=== PATIENT | male | born 1970 | race Caucasian/White ===

== ENCOUNTER 2018-11-27 17:35 | Emergency (ER) | payer BC, OTHER ==
[2018-11-27 17:40] VITALS: BP 124/91
[2018-11-27] MEDS ORDERED: Naproxen TAB* 250 MG PO ONE (19:18)
--- NOTE | 2018-11-27 19:25 | ED ---
Lower Extremity - HPI Summary HPI Summary: 48-year-old male presents with complaints of right knee pain that started today while at work. States he was walking and had a sudden onset of sharp pain to the medial aspect of the knee. Was not able to bear weight immediately after the onset of pain however has since been able to walk and bear weight with some discomfort. Reports mild swelling to the knee. Patient reports that he injured his left knee a couple weeks ago and has been favoring that knee and thinks he may have been putting extra stress on the right knee. No previous or past injury to the right knee. Denies bruising, erythema, numbness, or tingling. - History of Current Complaint Chief Complaint: EDExtremityLower Stated Complaint: TENDER KNEE, SHARP PAIN PER PT Time Seen by Provider: 11/27/18 19:06 Hx Obtained From: Patient Pain Intensity: 2 - Allergies/Home Medications Allergies/Adverse Reactions: Allergies Allergy/AdvReac Type Severity Reaction Status Date / Time No Known Allergies Allergy Verified 11/27/18 17:40 Home Medications: Home Medications Fluticasone NASAL SPRAY 50MCG* [Flonase NASAL SPRAY 50MCG*] 2 spray BOTH NARES DAILY 11/27/18 [History Confirmed 11/27/18] Sertraline* [Zoloft*] 100 mg PO DAILY 11/27/18 [History Confirmed 11/27/18] PMH/Surg Hx/FS Hx/Imm Hx Psychiatric History: Reports: Hx Depression - Immunization History Date of Tetanus Vaccine: unk Date of Influenza Vaccine: none Infectious Disease History: No Infectious Disease History: Denies: Traveled Outside the [place] in Last 30 Days - Family History Known Family History: Positive: Non-Contributory - Social History Occupation: Employed Full-time Lives: With Family Alcohol Use: Rare Substance Use Type: Reports: Marijuana Substance Use Comment - Amount & Last Used: daily Smoking Status (MU): Former Smoker Review of Systems Constitutional: Negative Cardiovascular: Negative Respiratory: Negative Gastrointestinal: Negative Genitourinary: Negative Musculoskeletal: Other - See HPI Negative: Bruising Negative: Paresthesia, Numbness All Other Systems Reviewed And Are Negative: Yes Physical Exam - Summary Physical Exam Summary: GENERAL APPEARANCE: Well developed, well nourished, alert and cooperative, and appears to be in no acute distress. CARDIAC: Normal S1 and S2. No S3, S4 or murmurs. Rhythm is regular. There is no peripheral edema, cyanosis or pallor. Extremities are warm and well perfused. Capillary refill is less than 2 seconds. Peripheral pulses intact. LUNGS: Clear to auscultation without rales, rhonchi, wheezing or diminished breath sounds. ABDOMEN: Positive bowel sounds. Soft, nondistended, nontender. No guarding or rebound. No masses or hepatosplenomegally. MUSKULOSKELETAL: Normal muscular development. Limping gait. EXTREMITIES: Mild tenderness and edema to the medial aspect of the right knee without any gross deformity, erythema, or ecchymosis. Full passive ROM. No laxity noted. Circulation and sensation were intact. SKIN: Skin normal color, texture and turgor. Triage Information Reviewed: Yes Vital Signs On Initial Exam: Initial Vitals Temp Pulse Resp BP Pulse Ox 99.2 F 87 16 124/91 97 11/27/18 17:38 11/27/18 17:38 11/27/18 17:38 11/27/18 17:38 11/27/18 17:38 Vital Signs Reviewed: Yes Diagnostics - Vital Signs Vital Signs Temp Pulse Resp BP Pulse Ox 11/27/18 17:38 99.2 F 87 16 124/91 97 - Laboratory Lab Statement: Any lab studies that have been ordered have been reviewed, and results considered in the medical decision making process. Lower Extremity Course/Dx - Course Course Of Treatment: 48-year-old male presents with complaints of right knee pain that started today while at work. States he was walking and had a sudden onset of sharp pain to the medial aspect of the knee. Was not able to bear weight immediately after the onset of pain however has since been able to walk and bear weight with some discomfort. Reports mild swelling to the knee. Patient reports that he injured his left knee a couple weeks ago and has been favoring that knee and thinks he may have been putting extra stress on the right knee. No previous or past injury to the right knee. Denies bruising, erythema, numbness, or tingling. Afebrile. Vital signs stable. Patient had some mild tenderness and edema to the medial aspect of the right knee without any gross deformity, erythema, or ecchymosis. No laxity noted. Circulation and sensation were intact. Remainder of exam was unremarkable. Patient was given naproxen 500 mg PO for the pain. X-ray showed no acute osseous pathology. Recommending conservative treatment for right knee sprain including naproxen 500 mg twice a day for the next 5 days then every 12 hours as needed as well as RICE. He is to follow-up with orthopedic surgery in 5-7 days if symptoms are not improving. Anticipatory guidance and warning symptoms reviewed with the patient. Verbalizes understanding and agrees with plan of care. - Diagnoses Provider Diagnoses: Right knee sprain Discharge - Sign-Out/Discharge Documenting (check all that apply): Patient Departure Patient Received Moderate/Deep Sedation with Procedure: No - Discharge Plan Condition: Stable Disposition: HOME Patient Education Materials: Knee Pain (ED) Referrals: Fiorella FIORE,Gregorio Brownlee [Primary Care Provider] - Jyoti David MD [Medical Doctor] - Additional Instructions: The x-ray performed in the clinic today showed no evidence of a fracture. I suspect that you have a sprain of the knee. Rest the knee as much as possible. You may walk and bear weight as tolerated. Apply ice to the affected area for 15-20 minutes at least 4 times a day to help with the pain and swelling. Elevate the leg to help reduce swelling. Take acetaminophen (Tylenol) or ibuprofen (Advil, Motrin) according to directions as needed for pain. Follow up with orthopedic surgery in 5-7 days if symptoms do not improve. Call for appointment. Seek immediate medical attention if you have severe pain not managed with pain medication, you are unable to walk or bear any weight, develop numbness or tingling in the leg, foot, or toes, or have any worsening of symptoms. - Billing Disposition and Condition Condition: STABLE Disposition: Home
== END 2018-11-27 21:12 | disposition home or self-care (01) ==
LOC: ED 17:35
DX: M25.561 Pain in right knee (principal); F32.9 Major depressive disorder, single episode, unspecified; Z87.891 Personal history of nicotine dependence
CPT/HCPCS: 99281; A9270-GY